=== PATIENT | male | born 1980 | race Caucasian/White ===

== ENCOUNTER 2021-02-18 14:10 | Outpatient (CLI) | payer OTHER | END 2021-02-18 15:25 | disposition home or self-care (01) | LOC: RAD 14:10 | PROVIDERS: ATTEND Radiology Diagnostic Radiology | DX: M25.512 Pain in left shoulder (principal) | CPT/HCPCS: 73221 ==

== ENCOUNTER 2021-02-27 09:50 | Outpatient (CLI) | payer OTHER | END 2021-02-27 14:55 | disposition home or self-care (01) | LOC: SONOGRAMA 09:50 | PROVIDERS: ATTEND Radiology Diagnostic Radiology | DX: M25.512 Pain in left shoulder (principal) ==

== ENCOUNTER 2021-08-08 11:59 | Outpatient (CLI) | payer OTHER | END 2021-08-08 12:01 | disposition home or self-care (01) | LOC: MRI 11:59 | PROVIDERS: ATTEND Physical Medicine & Rehabilitation | DX: M51.37 Other intervertebral disc degeneration, lumbosacral region (principal); M51.24 Other intervertebral disc displacement, thoracic region; M51.26 Other intervertebral disc displacement, lumbar region; M19.071 Primary osteoarthritis, right ankle and foot; M51.34 Other intervertebral disc degeneration, thoracic region | CPT/HCPCS: 72146; 72148 ==

== ENCOUNTER 2022-11-26 08:44 | Outpatient (CLI) | payer OTHER | END 2022-11-26 09:00 | disposition home or self-care (01) | LOC: MRI 08:44 | DX: M23.91 Unspecified internal derangement of right knee (principal) | CPT/HCPCS: 73721 ==

== ENCOUNTER 2023-07-27 13:08 | Outpatient (CLI) | payer OTHER | END 2023-07-27 15:00 | disposition home or self-care (01) | LOC: MRI 13:08 | PROVIDERS: ATTEND Radiology Diagnostic Radiology | DX: M75.01 Adhesive capsulitis of right shoulder (principal) | CPT/HCPCS: 73221 ==

== ENCOUNTER 2025-02-15 07:26 | Outpatient (CLI) | payer OTHER | END 2025-02-15 07:35 | disposition home or self-care (01) | LOC: MRI 07:26 | DX: M25.511 Pain in right shoulder (principal) | CPT/HCPCS: 73221 ==